=== PATIENT | female | born 1980 | race Caucasian/White ===

== ENCOUNTER 2017-04-25 00:25 | Emergency (ER) | payer OTHER ==
[~2017-04-25] VITALS: Ht 154.9 cm; Wt 63.5 kg
[~2017-04-25 00:25] MED LIST: ABILIFY15 MG PO; AZITHROMYCIN 2250 MG PO; BEYAZ 28 TABLE1 EACH PO; CIPRO500 MG PO; CLIMARA1 EAC2 TRANSDERM; COLACE100 MG PO; DOXYCYCLINE 10100 MG PO; ENDOCET 5-3251 EACH PO; ESTRACE0.5 MG PO; FEOSOL325 M1 PO; FLAGYL 250 MG250 MG; FLEXERIL PO; FLONASE 0.05%50 MCG NASAL; HYDROCODON-ACE1 EAC7 PO; HYDROCODONE-AC120 ML PO; HYDROCODONE-AP1 EAC6 PO; IBUPROFEN 600600 M1 PO; IBUPROFEN 800800 M1 PO; MACROBID 100 M100 M1 PO; MULTIVITAMINS; MULTIVITAMINS1 EAC7 PO; NORCO 5-325 TA1 EACH PO; NUVARING VAGIN1 EACH VG; ONDANSETRON HCL4 M2 PO; PERCOCET 5-3251 EACH PO; PERCOCET 7.5-31 EACH PO; PERCOCET 7.5-51 EACH PO; PERCOCET PO; PHENERGAN 25 MG25 M1 PO; PHENERGAN25 MG RE; PRILOSEC40 MG PO; PROZAC20 MG PO; TRAMADOL 50 MG50 MG PO; TYLENOL325 MG PO; VENTOLIN HFA INH8 GM INH; XANAX1 MG PO; ZOFRAN ODT4 MG PO; ZOFRAN4 MG PO; ZPAK PO; [UNRECOGNIZED DRUG - OTHER] PO
[2017-04-25] MEDS ORDERED: VALIUM5 MG PO (00:35)
[2017-04-25 01:19] LABS: URINE BILIRUBIN NEGATIVE (Negative); URINE BLOOD TRACE (Negative); URINE CLARITY CLEAR; URINE COLOR YELLOW; URINE GLUCOSE-RANDOM* NEGATIVE (Negative); URINE KETONES NEGATIVE (Negative); URINE LEUKOCYTES-REFLEX NEGATIVE (Negative); URINE NITRITE-REFLEX NEGATIVE (Negative); URINE PROTEIN (DIPSTICK) NEGATIVE (Negative); URINE SPECIFIC GRAVITY >= 1.030 (1.005-1.035); URINE UROBILINOGEN 0.2 E.U./dl (0.2-1.0)
[2017-04-25 01:24] LABS: ABSOLUTE NEUTROPHILS 4.8 thou/uL (1.4-8.2); BASOPHILS 0.8 % (0.0-2.0); HEMOGLOBIN 11.9 gm/dL (12.0-15.0); LYMPHOCYTES 41.8 % (24.0-44.0); MCH 31.3 pg (26.0-34.0); MCHC 34.1 g/dL (28.0-37.0); MCV 91.6 fL (80.0-100.0); MONOCYTES 8.6 % (1.0-8.0); PLATELET COUNT 356 thou/uL (150-400); POLYS 46.8 % (36.0-66.0); RBC 3.82 mil/uL (4.20-5.00); RDW 13.5 % (10.5-14.5); WBC 10.2 thou/uL (4.0-11.0)
[2017-04-25 01:30] LABS: CALCIUM 9.6 mg/dL (8.5-10.1); CREATININE 0.7 mg/dL (0.6-1.0)
[2017-04-25 01:35] LABS: ALBUMIN 3.7 g/dL (3.4-5.0); TOTAL BILIRUBIN 0.2 mg/dL (<0.1-1.0); TOTAL PROTEIN 7.8 g/dL (6.4-8.2)
[2017-04-25 02:50] VITALS: BP 110/42
[2017-11-05] MEDS ORDERED: KEPPRA 500 MG500 M1 PO ×2 (12:40→14:46)
== END 2017-04-25 02:51 | disposition home or self-care (01) ==
LOC: ER 00:25
PROVIDERS: Emergency Medicine
DX: R10.31 Right lower quadrant pain (principal); F41.0 Panic disorder [episodic paroxysmal anxiety]; K21.9 Gastro-esophageal reflux disease without esophagitis; J45.909 Unspecified asthma, uncomplicated; F17.210 Nicotine dependence, cigarettes, uncomplicated; Z90.49 Acquired absence of other specified parts of digestive tract; Z88.0 Allergy status to penicillin; Z88.1 Allergy status to other antibiotic agents; Z88.6 Allergy status to analgesic agent